=== PATIENT | female | born 1985 | race Caucasian/White ===

== ENCOUNTER → 2021-03-25 | Day surgery (SDC) | payer BC, OTHER ==
[~2021-03-25] MED LIST: HYDROCODON-ACE1 EAC4 PO; NAPROSYN EC 50500 MG PO; ZOFRAN 4 MG TAB4 MG PO
[2021-03-25 07:14] LABS: HEMOGLOBIN 14.2 gm/dl (12.3-15.3); RED BLOOD COUNT 4.59 M/UL (4.00-5.10)
== END | disposition home or self-care (01) ==
LOC: OR 06:40
PROVIDERS: Obstetrics & Gynecology
DX: N92.0 Excessive and frequent menstruation with regular cycle (principal); N94.6 Dysmenorrhea, unspecified; L82.1 Other seborrheic keratosis; I73.00 Raynaud's syndrome without gangrene; F41.9 Anxiety disorder, unspecified; E07.9 Disorder of thyroid, unspecified
CPT/HCPCS: 36415; 81001; 84703; 85025; J0690; J1100; J2001; J2250; J2405; J2704; J2795; J3010; J7030; J7120